=== PATIENT | female | born 1940 | race Caucasian/White ===

== ENCOUNTER → 2020-04-09 | Outpatient (CLI) | payer MEDICARE, BC ==
[~2020-04-09] MED LIST: ASPIR 8181 MG PO; CARDIZEM30 MG PO; COUMADIN 2.5MG2.5 M1 PO; COUMADIN 5 MG TA5 M1 PO
== END ==
LOC: M.ULTRA 11:30
PROVIDERS: ATTEND Internal Medicine
DX: M17.0 Bilateral primary osteoarthritis of knee (principal); M71.22 Synovial cyst of popliteal space [Baker], left knee; I82.432 Acute embolism and thrombosis of left popliteal vein; M25.762 Osteophyte, left knee; M25.462 Effusion, left knee